=== PATIENT | female | born 1995 | race Caucasian/White ===

== ENCOUNTER 2021-05-06 23:38 | Observation (INO) | payer OTHER ==
[2021-05-07] MEDS ORDERED: SODIUM CHLORIDE 0.9% 500 ML INFUS.BAG IV ONE (02:00)
[2021-05-07] MEDS ORDERED: ACETAMINOPHEN 1000 MG/100 ML BAG IVPB ONE (02:00)
[2021-05-07] MEDS ORDERED: ONDANSETRON 4 MG TABLET PO ONE (02:00)
[2021-05-07] MEDS ORDERED: SUCRALFATE 1 GM TABLET (FP) PO ONE (02:01)
[2021-05-07] MEDS ORDERED: MAG HYDROX/AL HYDROX/SIMETH 30 ML UNIT-DOSE CUP PO ONE (02:09)
[2021-05-07] MEDS ORDERED: ONDANSETRON 4 MG/2 ML VIAL ONE ×2 (02:14→11:38)
[2021-05-07] MEDS ORDERED: ACETAMINOPHEN INJECTION 100 ML IVPB ONE ×2 (02:14→11:33)
[2021-05-07] MEDS ORDERED: MAG HYDROX/AL HYDROX/SIMETH 30 ML UNIT-DOSE CUP ONE ×2 (02:14→13:18)
[2021-05-07] MEDS ORDERED: SUCRALFATE 1 GM TABLET (FP) ONE (02:14)
[2021-05-07 02:45] LABS: BASO % 0.4 % (0-2.0); EOS % 0.1 % (0-4.5); HEMATOCRIT 37.2 % (32.4-45.2); HEMOGLOBIN 12.5 GM/dL (10.7-15.3); MCH 29.2 pg (25.7-33.7); MCHC 33.5 g/dl (32.0-36.0); MEAN CELL VOLUME 87.1 fl (80-96); MEAN PLT VOLUME 8.9 fl (7.5-11.1); MONO % 3.9 % (3.8-10.2); NEUT % 86.6 % (42.8-82.8); PLATELET COUNT 273 10^3/uL (134-434); RBC 4.27 M/mm3 (3.60-5.2); RDW 13.4 % (11.6-15.6); WHITE BLOOD COUNT 12.6 K/mm3 (4.0-10.0)
[2021-05-07 03:09] LABS: BLOOD UREA NITROGEN 18.2 mg/dL (7-18); CALCIUM 9.3 mg/dL (8.5-10.1)
[2021-05-07 03:12] LABS: CREATININE 0.8 mg/dL (0.55-1.3)
[2021-05-07 03:14] LABS: BILIRUBIN,TOTAL 0.7 mg/dL (0.2-1); TOT PROT 8.6 g/dl (6.4-8.2)
[2021-05-07] MEDS ORDERED: morphine CARPU-JECT 4 MG/1 ML DISP.SYRIN IVPUSH ONE (04:12)
[2021-05-07] MEDS ORDERED: METOCLOPRAMIDE HCL INJECTION 10 MG/2 ML VIAL IVPB ONE (04:12)
[2021-05-07] MEDS ORDERED: METOCLOPRAMIDE HCL INJECTION 10 MG/2 ML VIAL ONE (04:37)
[2021-05-07] MEDS ORDERED: morphine SULFATE 4 MG/ML VIAL ONE (04:37)
[2021-05-07] MEDS: D5-1/2NS+20 MEQ KCL - 20 MEQ/1,000 ML INFUS.BAG IV SCH ×2 (04:52→14:22)
[2021-05-07] MEDS ORDERED: ACETAMINOPHEN 325 MG TABLET (FP) PO PRN (05:34)
[2021-05-07] MEDS ORDERED: POLYETHYLENE GLYCOL (HEALTHYLAX) 3350 17 GM PACKET PO PRN (05:34)
[2021-05-07] MEDS ORDERED: ACETAMINOPHEN 1000 MG/100 ML BAG IVPB PRN ×2 (06:07→11:58)
[2021-05-07] MEDS: ONDANSETRON 4 MG/2 ML VIAL IVPUSH PRN ×2 (11:44→16:53)
[2021-05-07] MEDS: MAG HYDROX/AL HYDROX/SIMETH 30 ML UNIT-DOSE CUP PO SCH ×4 (12:50→23:17)
[2021-05-07 14:17] VITALS: BMI 24.0
[2021-05-07] MEDS ORDERED: ONDANSETRON 4 MG/2 ML VIAL IVPB PRN (17:50)
[2021-05-07] MEDS ORDERED: SODIUM CHLORIDE 1,000 ML IV SCH (18:00)
[2021-05-07] MEDS: SODIUM CHLORIDE 1,000 ML IV SCH (18:03)
[2021-05-07] MEDS ORDERED: DEXTROSE 5%-WATER - 50 ML IVPB ONE (18:07)
[2021-05-07] MEDS ORDERED: cefTRIAXone SODIUM 1 GM VIAL ONE (18:07)
[2021-05-07] MEDS: METOCLOPRAMIDE HCL INJECTION 10 MG/2 ML VIAL IVPB SCH (18:08)
[2021-05-07] MEDS: CEFTRIAXONE 1 GM in DEXTROSE 5%-WATER - 50 ML IVPB SCH (18:41)
[2021-05-07] MEDS ORDERED: PANTOPRAZOLE SODIUM 40 MG VIAL IVPB SCH (22:00)
[2021-05-07] MEDS ORDERED: PANTOPRAZOLE SODIUM 40 MG in SODIUM CHLORIDE 100 ML IVPB SCH (22:00)
[2021-05-08] MEDS: METOCLOPRAMIDE HCL INJECTION 10 MG/2 ML VIAL IVPB SCH ×2 (01:05→10:35)
[2021-05-08] MEDS: SODIUM CHLORIDE 1,000 ML IV SCH (04:56)
[2021-05-08] MEDS: MAG HYDROX/AL HYDROX/SIMETH 30 ML UNIT-DOSE CUP PO SCH ×3 (05:00→17:04)
[2021-05-08] MEDS ORDERED: cefTRIAXone SODIUM 1 GM VIAL ONE (08:17)
[2021-05-08] MEDS ORDERED: DEXTROSE 5%-WATER - 50 ML IVPB ONE (08:18)
[2021-05-08 08:43] LABS: INR 1.21 (0.83-1.09); PROTHROMBIN TIME (PATIENT) 13.9 SEC (9.7-13.0)
[2021-05-08 09:01] LABS: ALBUMIN 3.3 g/dl (3.4-5.0); BLOOD UREA NITROGEN 8.4 mg/dL (7-18); CALCIUM 8.6 mg/dL (8.5-10.1); MAGNESIUM 2.2 mg/dL (1.8-2.4)
[2021-05-08 09:04] LABS: CREATININE 0.7 mg/dL (0.55-1.3)
[2021-05-08 09:06] LABS: BILIRUBIN,TOTAL 1.6 mg/dL (0.2-1); TOT PROT 7.1 g/dl (6.4-8.2)
[2021-05-08] MEDS ORDERED: POLYETHYLENE GLYCOL (HEALTHYLAX) 3350 17 GM PACKET PO SCH (10:00)
[2021-05-08] MEDS: CEFTRIAXONE 1 GM in DEXTROSE 5%-WATER - 50 ML IVPB SCH (11:37)
[2021-05-08] MEDS ORDERED: metroNIDAZOLE 250 MG TABLET PO SCH (14:00)
[2021-05-08 14:24] VITALS: BP 95/48; PULSE 85
[2021-05-08] MEDS ORDERED: METOCLOPRAMIDE HCL 10 MG TABLET (FP) PO SCH (16:30)
[2021-05-08 17:11] VITALS: TEMP 98.8
[2021-05-09] MEDS ORDERED: PANTOPRAZOLE 40 MG TABLET PO SCH (10:00)
== END 2021-05-08 18:33 | disposition home or self-care (01) ==
LOC: JER 23:38 → UNDOADMOB 05-07 04:06 → INTOOBSV 05-07 04:06 → JERBED 05-07 04:06 → J7W 05-07 13:43
PROVIDERS: ADMIT Family Medicine; ATTEND Nurse Practitioner Acute Care
PROC: 3E033NZ Introduction of Analgesics, Hypnotics, Sedatives into Peripheral Vein, Percutaneous Approach (ICD-10-PCS; principal; 2021-05-07)
PROC: 3E03329 Introduction of Other Anti-infective into Peripheral Vein, Percutaneous Approach (ICD-10-PCS; 2021-05-07)
PROC: 3E023NZ Introduction of Analgesics, Hypnotics, Sedatives into Muscle, Percutaneous Approach (ICD-10-PCS; 2021-05-07)
PROC: 3E0337Z Introduction of Electrolytic and Water Balance Substance into Peripheral Vein, Percutaneous Approach (ICD-10-PCS; 2021-05-07)
DX: K55.9 Vascular disorder of intestine, unspecified (principal); K59.00 Constipation, unspecified; K92.0 Hematemesis; K52.9 Noninfective gastroenteritis and colitis, unspecified; R53.1 Weakness; D72.829 Elevated white blood cell count, unspecified
CPT/HCPCS: 36415; 74177-TC; 80053; 83690; 83735; 84703; 85025; 85610; 93005; 93010; 96361; 96372; 96374; 96375; 96376; 99285-25; C9803; G0378; J0131; U0003; U0005

== ENCOUNTER 2024-10-03 04:27 | Inpatient (IN) | payer OTHER ==
[2024-10-03] MEDS ORDERED: LIDOCAINE 5% TOPICAL PATCH ONE (04:49)
[2024-10-03] MEDS ORDERED: KETOROLAC TROMETHAMINE 30 MG/1 ML VIAL ONE ×2 (04:49→16:04)
[2024-10-03] MEDS: LIDOCAINE 5% TOPICAL PATCH TP ONE (04:56)
[2024-10-03] MEDS: KETOROLAC TROMETHAMINE 30 MG/1 ML VIAL IM ONE (04:56)
[2024-10-03] MEDS ORDERED: ONDANSETRON 4 MG/2 ML VIAL ONE ×2 (05:28→13:07)
[2024-10-03] MEDS ORDERED: MORPHINE SULFATE 2 MG/ML SYRINGE ONE ×2 (05:28→08:04)
[2024-10-03] MEDS: ONDANSETRON 4 MG/2 ML VIAL IVPUSH ONE (05:30)
[2024-10-03] MEDS: morphine CARPU-JECT 4 MG/1 ML DISP.SYRIN IVPUSH ONE (05:30)
[2024-10-03] MEDS: SODIUM CHLORIDE 0.9% 500 ML INFUS.BAG IV ONE (05:50)
[2024-10-03] MEDS ORDERED: ACETAMINOPHEN INJECTION 100 ML ONE (06:27)
[2024-10-03] MEDS: ACETAMINOPHEN 1000 MG/100 ML BAG IVPB ONE (06:30)
[2024-10-03 06:33] LABS: ABSOLUTE IMMATURE GRANULOCYTES 0.07 x10^3/uL (0.0-0.031); BASOPHILS # 0.06 x10^3/uL (0.01-0.08); EOSINOPHIL % 3.8 % (0.7-5.8); EOSINOPHILS # 0.53 x10^3/uL (0.04-0.36); HEMATOCRIT 41.2 % (34.1-44.9); HEMOGLOBIN 13.8 g/dL (11.2-15.7); MCHC 33.5 g/dl (32.2-35.5); MEAN CELL VOLUME 87.5 fl (79.4-94.8); MEAN PLT VOLUME 11.9 fl (9.4-12.3); MONOCYTE # 0.68 x10^3/uL (0.24-0.86); MONOCYTE % 4.9 % (4.7-12.5); PLATELET COUNT 243 x10^3/uL (182-369); RDW 12.1 % (12.1-16.8)
[2024-10-03 06:45] LABS: INR 1.1 (0.83-1.09)
[2024-10-03 06:48] LABS: ACTIVATED PTT 28.9 SECONDS (25.2-36.5)
[2024-10-03 06:54] LABS: POTASSIUM 4.1 mmol/L (3.5-5.1)
[2024-10-03 06:57] LABS: ALBUMIN 4.4 g/dl (3.4-5.0); BLOOD UREA NITROGEN 16.5 mg/dL (7-18)
[2024-10-03 07:01] LABS: CREATININE 0.8 mg/dL (0.55-1.3)
[2024-10-03 07:02] LABS: BILIRUBIN,TOTAL 1.5 mg/dL (0.2-1); TOT PROT 7.9 g/dl (6.4-8.2)
[2024-10-03] MEDS: MORPHINE SULFATE 2 MG/ML SYRINGE IVPUSH ONE (08:23)
[2024-10-03] MEDS: morphine SULFATE 4 MG/ML VIAL IVPUSH ONE ×3 (09:26→13:27)
[2024-10-03] MEDS: ONDANSETRON 4 MG/2 ML VIAL IVPB ONE (11:47)
[2024-10-03] MEDS ORDERED: ONDANSETRON 4 MG/2 ML VIAL IVPUSH PRN (13:00)
[2024-10-03] MEDS ORDERED: PROMETHAZINE HCL 25 MG/1 ML VIAL IVPB PRN (13:00)
[2024-10-03] MEDS ORDERED: oxyCODONE HCL 5 MG TABLET PO PRN ×2 (13:00)
[2024-10-03] MEDS ORDERED: PROPOFOL 40 ML ONE (13:06)
[2024-10-03] MEDS ORDERED: LIDOCAINE HCL 2% 100 MG/5 ML DISP.SYRIN ONE (13:07)
[2024-10-03] MEDS ORDERED: ROCURONIUM BROMIDE 50 MG/5 ML SYRINGE ONE (13:07)
[2024-10-03] MEDS ORDERED: DEXAMETHASONE SOD PHOSPHATE 4 MG/1 ML VIAL ONE (13:07)
[2024-10-03] MEDS ORDERED: MIDAZOLAM HCL 2 MG/2 ML SINGLE DOSE VIAL ONE (13:07)
[2024-10-03] MEDS ORDERED: LIDOCAINE HCL 1%, 10 MG/ML (20ML VIAL) ONE (13:15)
[2024-10-03] MEDS ORDERED: BUPIVACAINE HCL/PF 0.5% (5MG/ML) 10 ML VIAL ONE (13:16)
[2024-10-03] MEDS: BUPIVACAINE HCL/PF 0.5% (5MG/ML) 10 ML VIAL IJ ONE ×2 (14:30)
[2024-10-03] MEDS: LIDOCAINE HCL 1%, 10 MG/ML (20ML VIAL) INF ONE ×2 (14:30)
[2024-10-03] MEDS ORDERED: GLYCOPYRROLATE 0.2 MG/1 ML VIAL ONE (15:15)
[2024-10-03] MEDS ORDERED: NEOSTIGMINE METHYLSULFATE 0.5 MG/1 ML - 10 ML MDV ONE (15:15)
[2024-10-03] MEDS ORDERED: IBUPROFEN 600 MG TABLET (FP) PO PRN (16:19)
[2024-10-03] MEDS ORDERED: ACETAMINOPHEN 325 MG TABLET (FP) PO PRN (16:19)
[2024-10-03] MEDS ORDERED: SIMETHICONE 80 MG TAB.CHEW (FP) PO PRN (16:19)
[2024-10-03] MEDS: LACTATED RINGERS SOLUTION 1,000 ML IV SCH (17:20)
[2024-10-04] MEDS ORDERED: oxyCODONE HCL 5 MG TABLET PO PRN (04:19)
[2024-10-04 07:25] LABS: ABSOLUTE IMMATURE GRANULOCYTES 0.04 x10^3/uL (0.0-0.031); BASOPHILS # 0.04 x10^3/uL (0.01-0.08); EOSINOPHIL % 0.5 % (0.7-5.8); EOSINOPHILS # 0.06 x10^3/uL (0.04-0.36); HEMATOCRIT 36.5 % (34.1-44.9); HEMOGLOBIN 11.9 g/dL (11.2-15.7); MCHC 32.6 g/dl (32.2-35.5); MEAN CELL VOLUME 89.7 fl (79.4-94.8); MEAN PLT VOLUME 12.3 fl (9.4-12.3); MONOCYTE # 0.84 x10^3/uL (0.24-0.86); MONOCYTE % 6.4 % (4.7-12.5); PLATELET COUNT 208 x10^3/uL (182-369); RDW 12.5 % (12.1-16.8)
[2024-10-04 08:54] VITALS: BP 101/63; PULSE 69; RESP 14; TEMP 97.9
== END 2024-10-04 10:30 | disposition home or self-care (01) | DRG 743 ==
LOC: JER 04:27 → JERBED 13:07 → J3W 17:46
PROVIDERS: ADMIT Student in an Organized Health Care Education/Training Program; ATTEND Student in an Organized Health Care Education/Training Program
PROC: 0UT04ZZ Resection of Right Ovary, Percutaneous Endoscopic Approach (ICD-10-PCS; 2024-10-03)
PROC: 0UT54ZZ Resection of Right Fallopian Tube, Percutaneous Endoscopic Approach (ICD-10-PCS; principal; 2024-10-03 13:00)
DX: N83.511 Torsion of right ovary and ovarian pedicle (principal); D27.0 Benign neoplasm of right ovary
CPT/HCPCS: 36415; 74177-TC; 76830-TC; 80053; 83605; 83735; 84703; 85025; 85610; 85730; 86850; 86900; 86901; 88305-TC; 93005; 93010; 94760; 99285-25; Q9967